=== PATIENT | female | born 1970 | race Caucasian/White ===

== ENCOUNTER 2021-04-22 14:22 | Emergency (ER) | payer OTHER ==
[~2021-04-22] VITALS: Ht 172.7 cm; Wt 76.2 kg
[2021-04-22] MEDS: ASPIRIN EC 325 MG TABLET.DR PO SCH (15:00)
[2021-04-22] MEDS ORDERED: ASPIRIN 325 MG TABLET ONE (15:07)
[2021-04-22 15:13] LABS: HEMATOCRIT 42.4 % (31.2-41.9); MEAN CORPUSCULAR HEMOGLOBIN 31.1 uug (24.7-32.8); MEAN CORPUSCULAR VOLUME 91.9 fL (75.5-95.3); PLATELET COUNT (AUTO) 250 K/uL (179-408)
[2021-04-22 15:19] LABS: CREATININE 0.6 mg/dL (0.6-1.3); POTASSIUM 3.6 mmol/L (3.5-5.1)
[2021-04-22 15:31] LABS: BILIRUBIN,DIRECT 0.2 mg/dL (0.0-0.2); TOTAL PROTEIN, SERUM 7.3 g/dL (6.4-8.2)
--- NOTE | 2021-04-22 18:22 | NUR ---
Repeat EKG done and pt on monitor. Pt aware she will have a repeat lab test and await those results. Pt states feeling comfortable at this time and with improvement in S/S.
[2021-04-22] MEDS ORDERED: CLON0.5T4 PO (18:56)
[2021-04-22 19:13] VITALS: BP 104/50
== END 2021-04-22 19:13 | disposition home or self-care (01) ==
LOC: ER 14:22
DX: R07.89 Other chest pain (principal); F17.290 Nicotine dependence, other tobacco product, uncomplicated; Z90.710 Acquired absence of both cervix and uterus; Z79.899 Other long term (current) drug therapy
CPT/HCPCS: 36415; 70030-TC; 71045; 85025; 93005; A4663